=== PATIENT | female | born 1940 | race Caucasian/White ===

== ENCOUNTER 2017-09-27 16:56 | Emergency (ER) | payer MEDICARE ==
[2017-09-27] MEDS ORDERED: Adacel (T-DAP) 0.5 ML VIAL ONE (17:13)
--- NOTE | 2017-09-27 18:38 | RAD ---
PA AND LATERAL VIEWS OF THE CHEST 09/27/17 HISTORY: Injury. Chest pain. FINDINGS/IMPRESSION: The heart is enlarged. There is a hiatal hernia. The lungs are well expanded without focal areas of c onsolidation, pneumothorax, keith pulmonary edema or pleural effusions. POS: [facility]
== END 2017-09-27 17:48 | disposition home or self-care (01) ==
LOC: NAV ERS 16:56
DX: S20.212A Contusion of left front wall of thorax, initial encounter (principal); S20.211A Contusion of right front wall of thorax, initial encounter; S50.812A Abrasion of left forearm, initial encounter; E03.9 Hypothyroidism, unspecified; I10 Essential (primary) hypertension; F41.9 Anxiety disorder, unspecified; J45.909 Unspecified asthma, uncomplicated; Z79.899 Other long term (current) drug therapy; V49.9XXA Car occupant (driver) (passenger) injured in unspecified traffic accident, initial encounter
CPT/HCPCS: 71046; 90471; 90715